=== PATIENT | female | born 1990 | race Caucasian/White ===

== ENCOUNTER 2022-06-22 17:43 | Emergency (ER) | payer OTHER ==
[2022-06-22 17:50] VITALS: BP 165/78; PULSE 90; RESP 17; TEMP 99.5; BMI 26.2
[2022-06-22] MEDS ORDERED: IBUPROFEN 600 MG TABLET (FP) PO ONE ×2 (19:15→19:17)
[2022-06-22] MEDS ORDERED: LIDOCAINE 5% TOPICAL PATCH TP ONE (19:15)
[2022-06-22] MEDS ORDERED: LIDOCAINE 5% TOPICAL PATCH ONE (19:17)
[2022-06-22] MEDS ORDERED: LIDOCAINE PATCH REMOVAL MC SCH (22:00)
== END 2022-06-22 20:22 | disposition home or self-care (01) ==
LOC: JERFT 17:43
DX: M54.9 Dorsalgia, unspecified (principal)
CPT/HCPCS: 99283-25